=== PATIENT | female | born 1995 | race Caucasian/White ===

== ENCOUNTER → 2021-08-08 09:31 | Outpatient (BNVA) | payer MEDICAID, SELFPAY | PROVIDERS: Visit Provider Emergency Medicine | DX: R39.9 Unspecified symptoms and signs involving the genitourinary system (principal); R31.9 Hematuria, unspecified | CPT/HCPCS: 81000 ==

== ENCOUNTER 2025-01-09 15:08 | Emergency (ER) | payer MEDICAID, SELFPAY ==
[2025-01-09 15:12] VITALS: BP 112/80; PULSE 105; RESP 17; TEMP 36.7; O2SAT 97; BMI 26.8
--- NOTE | 2025-01-09 15:41 | ED_ITS ---
HPI - Nausea/Vomiting/Diarrhea 2 General: Chief complaint: Nausea/Vomiting/Diarrhea Stated complaint: NVD Time Seen by Provider: 01/09/25 15:20 History of Present Illness: Patient is 29-year-old female x 2 weeks, that started having diarrhea on Saturday, 5 days ago, 01/05 that presents due to nausea, emesis x 2 when attempting to eat solid food, and ongoing too numerous to count liquid diarrhea. 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 No actual exposure to C. difficile. No camping. Associated nausea: Yes Associated symtoms: Reports nausea; Denies anxiety, chest pain, headache(s) or palpitations Related Data Previous Rx's ?Medication ?Instructions ?Recorded amoxicillin 500 mg tablet 500 mg PO BID 7 days #14 tab s 08/08/21 ondansetron 4 mg disintegrating 4 mg PO DAILY PRN naus ea and 01/09/25 tablet vomiting 4 days #10 tabs Allergies Allergy/AdvReac Type Severity Reaction Status Date / Time No Known Allergies Allergy Verified 08/08/21 09:27 Review of Systems 2 Const: Denies: fever(s) or chills ENMT: Denies: throat pain or mouth pain Card: Denies: chest pain or palpitations Resp: Denies: dyspnea or non-productive cough GI: Reports: abdominal pain, nausea, vomiting, change in bowel habits and change in stool character : Denies: flank pain or difficulty voiding Musc: Denies: neck pain, back pain or joint pain Skin/Breast: Denies: rash or pruritus Neuro: Denies: headache(s) or numbness in extremities Psych: Denies: anxiety or depression Endo: Reports: polydipsia Jimmie/Lymph: Denies: easy bruising or easy bleeding PFSH ED 2 PFSH: Social History Smoking and tobacco/nicotine status: never used tobacco/nicotine Female Reproductive History: Spontaneous abortions: No Physical Exam 2 Const: COMMON NORMALS: patient oriented x3 HENMT: COMMON NORMALS: normocephalic and atraumatic HEAD & SCALP: n ormocephalic and atraumatic Resp: COMMON NORMALS: normal respiratory effort and clear to auscultation bilaterally EFFORT & INSPECTION: Yes able to speak in complete sentences A USCULTATION: clear to auscultation bilaterally Cardio: COMMON NORMALS: regular rate and regular rhythm RATE: regular rate RHYTHM: regular rhythm GI: COMMON NORMALS: Soft to palpation and non-tender AUSCULTATION: Yes Hypoactive bowel sounds present PALPATION: Yes Soft to palpation : COMMON NORMALS: Yes no CVA tenderness BLADDER/KIDNEY EXAM: Yes no CVA tenderness Back/Pelvis: COMMON NORMALS: no CVA tenderness Extremity: COMMON NORMALS: normal to inspection, full ROM and capillary refill normal Neuro: COMMON NORMALS: patient oriented x3 and CN's II-XII intact bilaterally Psych: COMMON NORMALS: mental status grossly normal and Normal thought process present THOUGHT PROCESS: Normal thought process present Course 2 Reevaluation(s): Reevaluation #1: Patient states her nausea feels better after Zofran, and IV fluids. She is unable to produce stool just yet, but states that her stomach is gurgling, and will try again. Reevaluation #2: Able to produce a BM. Awaiting for lab results. Patient without any complaints. Vital Signs: Vital signs: Vital Signs Temperature 98.1 F 01/09/25 15:12 Pulse Rate 105 H 01/09/25 15:12 Respiratory Rate 17 01/09/25 15:12 Blood Pressure 112/80 01/09/25 15:12 Pulse Oximetry 97 01/09/25 15:12 Oxygen Delivery Me thod Room Air 01/09/25 15:12 MDM - Nausea/Vomiting/Diarrhea Medical Decision Making Patient presented after antibiotics, with mainly diarrhea and 2 isolated incidence of nausea and vomiting. C. difficile is high on the list of differentials/pseudomembranous colitis. She does not have significant abdominal tenderness on examination, and therefore will proceed with stool collection and checking for C. difficile PCR. Explained to patient. She is happy to oblige if she can produce stool. Lab Data 01/09/25 15:50 01/09/25 15:50 Laboratory Results WBC 4.48 10^3/uL (3.29-11.43) 01/09/25 15:50 RBC 4.63 10^6/uL (3.85-5.65) 01/09/25 15:50 Hgb 13.80 g/dL (11.27-16.99) 01/09/25 15:50 Hct 41.7 % (36-47) 01/09/25 15:50 MCV 90.1 fl (85-98) 01/09/25 15:50 MCH 29.8 pg (27-33) 01/09/25 15:50 MCHC 33.1 g/dL (30-55) 01/09/25 15:50 RDW 13.9 % (12.1-15.1) 01/09/25 15:50 Plt Count 284 10^3/cmm (157-399) 01/09/25 15:50 MPV 9.7 fL (7.4-10.4) 01/09/25 15:50 Neut % (Auto) 49.9 % 01/09/25 15:50 Lymph % (Auto) 37.5 % 01/09/25 15:50 [place] % (Auto) 9.6 % 01/09/25 15:50 Eos % (Auto) 2.2 % 01/09/25 15:50 Baso % (Auto) 0.4 % 01/09/25 15:50 Neut # (Auto) 2.23 10^3/uL (1.8-7.7) 01/09/25 15:50 Lymph # (Auto) 1.7 10^3/uL (0.8-4.8) 01/09/25 15:50 [place] # (Auto) 0.4 10^3/uL (0.2-0.9) 01/09/25 15:50 Eos # (Auto) 0.1 10^3/uL (0.0-0.8) 01/09/25 15:50 Baso # (Auto) 0.0 10^3/uL (0.0-0.1) 01/09/25 15:50 Nucleated RBC % (auto) 0 % 01/09/25 15:50 Nucleated RBCs # 0.0 /100WBC 01/09/25 15:50 Sodium 140 mmol/L (136-145) 01/09/25 15:50 Potassium 3.1 mmol/L (3.5-5.1) L 01/09/25 15:50 Chloride 104 mmol/L (98-107) 01/09/25 15:50 Carbon Dioxide 19 mmol/L (22-29) L 01/09/25 15:50 Anion Gap 20.1 (5-19) H 01/09/25 15:50 BUN 9 mg/dL (6-20) 01/09/25 15:50 Creatinine 0.8 mg/dL (0.5-0.9) 01/09/25 15:50 GFR Calculation 84.2 mL/min (90-130) L 01/09/25 15:50 Glucose 88 mg/dL (65-115) 01/09/25 15:50 Calculated Osmolality 288 mOsm/kg (285-295) 01/09/25 15:50 Calcium 9.3 mg/dL (8.5-10.5) 01/09/25 15:50 Magnesium 1.7 mg/dL (1.7-2.3) 01/09/25 15:50 Total Bilirubin 0.2 mg/dL (0.15-1.2) 01/09/25 15:50 AST 23 U/L (0-32) 01/09/25 15:50 ALT 21 U/L (0-33) 01/09/25 15:50 Alkaline Phosphatase 108 U/L (35-105) H 01/09/25 15:50 Total Protein 7.9 g/dL (6.6-8.7) 01/09/25 15:50 Albumin 4.2 g/dL (3.5-5.2) 01/09/25 15:50 Globulin 3.7 g/dL (1.3-4.6) 01/09/25 15:50 Lipase 18 U/L (13-60) 01/09/25 15:50 HCG, Qual Negative (Negative) 01/09/25 15:57 Urine Color Yellow (Yellow) 01/09/25 15:57 Urine Appearance Cloudy (CLEAR) A 01/09/25 15:57 Urine pH 6.0 (5-7) 01/09/25 15:57 Ur Specific [place] 1.028 (1.005-1.030) 01/09/25 15:57 Urine Protein 1+ (Negative) A 01/09/25 15:57 Urine Glucose (UA) Negative (Normal) 01/09/25 15:57 Urine Ketones Trace (Negative) 01/09/25 15:57 Urine Blood 3+ (Negative) A 01/09/25 15:57 Urine Nitrate Negative (Negative) 01/09/25 15:57 Urine Bilirubin Negative (Negative) 01/09/25 15:57 Urine Urobilinogen 1.0 mg/dL (Negative) 01/09/25 15:57 Ur Leukocyte Esterase Negative (Negative) 01/09/25 15:57 Urine RBC 11-20 /hpf (0-2) H 01/09/25 15:57 Urine WBC 0-5 /hpf (0-5) 01/09/25 15:57 Ur Squamous Epith Cells 0-5 /hpf (0-5) 01/09/25 15:57 Amorphous Sediment Not Reportable 01/09/25 15:57 Urine Bacteria None seen /hpf (NONE) 01/09/25 15:57 Hyaline Casts 3.30 /lpf 01/09/25 15:57 C. difficile (PCR) Negative (Negative) 01/09/25 17:37 No radiology studies performed this visit Discharge Plan Discharge Patient Disposition: Home Clinical Impression: Gastroenteritis Condition: Stable Prescriptions: New ondansetron 4 mg tablet,disintegrating 4 mg PO DAILY PRN (Reason: nausea and vomiting) 4 Days Qty: 10 0RF No Action amoxicillin 500 mg tablet 500 mg PO BID 7 Days Qty: 14 0RF Discharge Orders: Discharge ED (Routine); Ordered 01/09/25 Ordered By: Laura Oneal Referrals: Cristhian Poon MD [Primary Care Provider] Discharge Diet: Clear Liquid Patient Instructions: Gastroenteritis (ED), Clear Liquid Diet (ED), Full Liquid Diet, [place] Diet - Adult Activity Restrictions/Additional Instructions: Initially, utilize a clear liquid diet. Instructions have been given. After 24 hours of tolerating clear liquid diet, you may increase to full liquid diet. After tolerating full liquid diet, increase to a bland diet. Use Zofran sparingly every 8 hours as needed. This will help with both nausea, and bulking your stools. You may utilize Imodium [id number]?follow instructions on the box since your C. difficile was negative. Return to ED for ongoing symptoms. Print Language: Mexican Coding Level of Care Code ED Warehouse Administrative Assistant for Vicenta Han
[2025-01-09 15:56] LABS: Basophils % 0.4 %; Eosinophils # 0.1 10^3/uL (0.0-0.8); Eosinophils % 2.2 %; Hematocrit 41.7 % (36-47); Lymphocytes # 1.7 10^3/uL (0.8-4.8); Lymphocytes % 37.5 %; Mean Corpuscular HGB Conc 33.1 g/dL (30-55); Mean Corpuscular Hemoglobin 29.8 pg (27-33); Mean Corpuscular Volume 90.1 fl (85-98); Mean Platelet Volume 9.7 fL (7.4-10.4); Monocytes # 0.4 10^3/uL (0.2-0.9); Monocytes % 9.6 %; Neutrophils # 2.23 10^3/uL (1.8-7.7); Neutrophils % 49.9 %; Nucleated Red Blood Cells % 0 %; Platelet Count 284 10^3/cmm (157-399); Red Blood Count 4.63 10^6/uL (3.85-5.65); Red Cell Distribution Width 13.9 % (12.1-15.1); White Blood Count 4.48 10^3/uL (3.29-11.43)
[2025-01-09] MEDS: sodium chloride 0.9% 1,000 ML 999 ML IV (16:07)
[2025-01-09] MEDS: ondansetron 2 mg/ML SDV 2 mL 4 MG IVP (16:07)
[2025-01-09 16:15] LABS: HCG Qualitative Urine. Negative (Negative)
[2025-01-09 16:16] LABS: Alanine Aminotransferase 21 U/L (0-33); Albumin Level 4.2 g/dL (3.5-5.2); Alkaline Phosphatase 108 U/L (35-105); Anion Gap 20.1 (5-19); Aspartate Amino Transferase 23 U/L (0-32); Blood Urea Nitrogen 9 mg/dL (6-20); Calcium 9.3 mg/dL (8.5-10.5); Carbon Dioxide 19 mmol/L (22-29); Chloride 104 mmol/L (98-107); Globulin 3.7 g/dL (1.3-4.6); Glomerular Filtration Rate 84.2 mL/min (90-130); Glucose 88 mg/dL (65-115); Lipase 18 U/L (13-60); Osmolality Calculated 288 mOsm/kg (285-295); Potassium 3.1 mmol/L (3.5-5.1); Sodium 140 mmol/L (136-145); Total Bilirubin 0.2 mg/dL (0.15-1.2); Total Protein 7.9 g/dL (6.6-8.7)
[2025-01-09 16:27] LABS: Bilirubin Urine Negative (Negative); Blood Urine 3+ (Negative); Glucose Urine UA Negative (Normal); Ketones Urine Trace (Negative); Leukocyte Esterase Urine Negative (Negative); Nitrate Urine Negative (Negative); Protein Urine 1+ (Negative); Specific Gravity, Urine 1.028 (1.005-1.030); Urine Appearance Cloudy (CLEAR); Urine Color Yellow (Yellow)
[2025-01-09 16:30] LABS: Add Urine Microscopic? YES; Bacteria Urine None Seen /hpf; Squamous Epithelial Cell Urine 0-5 /hpf (0-5); WBC Urine 0-5 /hpf (0-5)
[2025-01-09 16:39] LABS: Slide Review Slide Review Perform
[2025-01-09 16:42] LABS: Add Urine Culture? Yes
[2025-01-09] MEDS: potassium chloride ER 20 mEq Tablet 40 MEQ PO (17:08)
[2025-01-09 17:22] LABS: Magnesium 1.7 mg/dL (1.7-2.3)
[2025-01-09 18:25] LABS: C.Diff PCR (Lab) NEGATIVE (Negative)
[2025-01-09 19:19] VITALS: BP 125/72; PULSE 72; RESP 16; O2SAT 98
[2025-01-09] MEDS: magnesium sulfate premix 2 GM/50 ML PIGGYBACK IV (19:19)
[2025-01-09 20:17] VITALS: BP 120/87; PULSE 81; RESP 16; O2SAT 98
== END 2025-01-09 20:25 | disposition home or self-care (01) ==
PROVIDERS: Emergency Provider Physician Assistant; PCP Family Medicine
DX: K52.9 Noninfective gastroenteritis and colitis, unspecified (principal)
CPT/HCPCS: 80053; 81001; 81025; 83690; 83735; 85025; 87086; 87493; 96365; 96375; 99284; J2405; J3475; J7030; J9999